=== PATIENT | female | born 1995 | race Caucasian/White ===

== ENCOUNTER 2021-05-09 14:54 | Emergency (ER) | payer OTHER, SELFPAY ==
--- NOTE | ~2021-05-09 | CT_ITS ---
EXAMINATION: CT brain wo con INDICATION: Headache COMPARISON: None TECHNIQUE: Standard unenhanced head CT. The dose-length product (DLP) was 605.33 mGy-cm. The mA was a djusted according to patient size. Iterative reconstruction technique was employed. FINDINGS: There is no intracranial hemorrhage, acute infarction, or abnormal mass lesion. The ventric les are normal. There is no abnormal mass effect or midline shift. The santana-white matter differentiat ion is normal. The basal cisterns are patent. The orbits are normal. The paranasal sinuses, mastoids and calvarium are normal. IMPRESSION: 1. No acute intracranial abnormality. Reviewed, dictated and finalized at location F. L VBA DEVELOPER
--- NOTE | ~2021-05-09 | XR_ITS ---
EXAMINATION: XR chest 2V DATE: 05/09/2021 16:06 INDICATION: Transient alteration of awareness TECHNIQUE: PA and lateral views of the chest are obtained. COMPARISON: None available FINDINGS: The lungs are free of acute opacities. There is no pleural effusion or pneumothorax. The ca rdiomediastinal silhouette is normal. The visualized bones and soft tissues are unremarkable. IMPRESSION: 1. No acute cardiopulmonary abnormality. Reviewed, dictated and finalized at location F. TING MACHINE OPERATOR
[2021-05-09 15:00] VITALS: BP 153/88; PULSE 100; RESP 14; TEMP 36.5; O2SAT 100
--- NOTE | 2021-05-09 15:24 | ECG_ITS ---
Measurements Intervals [place] Rate: 95 P: -1 MA: 132 QRS: 63 QRSD: 98 T: 36 QT: 320 QTc: 402 Interpretive Statements SINUS RHYTHM INCOMPLETE RIGHT BUNDLE BRANCH BLOCK MINIMAL Q WAVES- INFERIOR LEADS BASELINE ARTIFACT- II, III, AVF, V1, V3-V6 BORDERLINE ECG Electronically Signed On 05-09-2021 20:15:01 THERMO CEMENTING FOLDER OPERATOR by Rah Sullivan D.O.
[2021-05-09 15:40] VITALS: PULSE 99
--- NOTE | 2021-05-09 15:49 | ED.DIZZY ---
HPI - Dizziness General Chief Complaint: Syncope Stated Complaint: Syncope Time Seen by Provider: 05/09/21 15:13 History of Present Illness HPI Narrative: 25-year-old female presents to the emergency room with multiple near syncopal episodes over the past 3 days. Associated with dizziness and lightheadedness that occurs only when she is sitting down. States the dizziness is worse when she is moving her head. Dizziness is not accompanied with nausea or vomiting. Patient has a history of PSVT, was evaluate the Holter monitor. Was told at the time that it was benign. Patient also states that she recently discontinued her Mirena IUD month ago. Related Data Home Medications Medication Instructions Recorded Confirmed galcanezumab-gnlm 120 mg/mL 120 mg SUBCUT MONTHLY 03/30/21 03/30/21 subcutaneous pen injector spironolactone 100 mg tablet 100 mg PO DAILY 03/30/21 03/30/21 Allergies Allergy/AdvReac Type Severity Reaction Status Date / Time No Known Allergies Allergy Verified 05/09/21 15:03 Review of Systems Review of Systems: CONSTITUTIONAL: Denies fever, chills, or sweats. EYES: Denies visual changes, redness, or discharge. ENT: Denies rhinorrhea, congestion, sore throat, or otalgia. CARDIOVASCULAR: Denies chest pain, palpitations, or edema. RESPIRATORY: Denies cough or dyspnea. GASTROINTESTINAL: Denies abdominal pain, nausea, vomiting, or diarrhea. GENITOURINARY: Denies dysuria or hematuria. SKIN: Denies rash or itching. MUSCULOSKELETAL: Denies back pain, joint pain, or myalgia. NEUROLOGIC: Denies headache, numbness, or weakness. Reports dizziness when sitting still PSYCHIATRIC: Denies anxiety or depression. [facility] Past Medical History Medical History Acne Migraines Surgical History Surgical History History of gynecological procedure (11/11/18) kyleena iud insertion Family History Family History Father Hypertension Sibling Chronic interstitial cystitis sister Social History Social History Smoking status: Never smoker Alcohol intake: current Drinks per week: 1 Substance use: former Substance use type: does not use Additional living arrangements comments: spouse Additional occupation/education comments: teacher Gender identity (if verbalized by the patient): Female Sexual Orientation (if Verbalized by the Patient): Straight or Heterosexual Exam Narrative: GENERAL: Well-appearing, well-nourished, and in no acute distress. HEAD: Normocephalic, atraumatic. EYES: PERRLA and EOMI. ENT: Nares clear, no rhinorrhea or epistaxis. Mucous membranes moist. Oropharynx without tonsillar hypertrophy exudate or other lesions. Bilateral TMs pearly santana nonbulging NECK: Supple. No adenopathy or masses. No carotid bruits or JVD CHEST: Clear to auscultation. No respiratory distress. No wheezes rales or rhonchi HEART: Regular rate and rhythm. No murmur heard. Normal peripheral pulses. ABDOMEN: Soft, nontender, nondistended, normal active bowel sounds. EXTREMITIES: Normal range of motion. No edema. SKIN: Warm, dry, no rash. NEURO: No focal deficits. Alert and oriented x3. PSYCH: Normal mood and affect. Course Vital Signs Vital signs: Vital Signs Temperature 36.5 C 05/09/21 15:00 Pulse Rate 100 05/09/21 15:00 Respiratory Rate 14 05/09/21 15:00 Blood Pressure 153/88 H 05/09/21 15:00 Pulse Oximetry 100 05/09/21 15:00 Temperature 36.5 C 05/09/21 15:00 Pulse Rate 97 05/09/21 16:25 Respiratory Rate 16 05/09/21 16:25 Blood Pressure 147/82 H 05/09/21 16:25 Pulse Oximetry 100 05/09/21 16:25 MDM - Dizziness MDM Narrative Medical decision making narrative: 25-year-old female presented to emergency room with intermittent dizziness
[2021-05-09 16:01] LABS: Basophils Absolute Auto 0.1 K/mm3 (0.0-0.1); Basophils Percent Auto 0.4 % (0.2-1.2); Eosinophils Absolute Auto 0.1 K/mm3 (0-0.3); Eosinophils Percent Auto 0.6 % (0-4.4); Hematocrit 37.8 % (37.0-47.0); Hemoglobin 13.1 g/dL (12.0-15.0); Immature Granulocyte Absolute 0.04 K/mm3 (0.00-0.031); Immature Granulocyte Percent A 0.3 % (0-0.5); Lymphocytes Absolute Auto 3.11 K/mm3 (0.9-3.2); Lymphocytes Percent Auto 26.4 % (18.3-44.2); Mean Corpuscular HGB Conc 34.7 g/dl (32-36); Mean Corpuscular Hemoglobin 32.8 pg (26-34); Mean Corpuscular Volume 94.7 fl (80-100); Mean Platelet Volume 9.7 fl (7.4-10.4); Monocytes Absolute Auto 0.8 K/mm3 (0.1-0.6); Monocytes Percent Auto 7.1 % (2.6-8.5); Neutrophils Absolute Auto 7.7 K/mm3 (1.3-6.7); Neutrophils Percent Auto 65.2 % (45.5-73.1); Platelet Count Result 276 k/mm3 (150-375); Red Blood Count 3.99 M/mm3 (4.2-5.4); Red Cell Distribution Width 11.8 % (11.5-14.5); White Blood Count 11.8 K/mm3 (4.5-10.0)
[2021-05-09 16:18] LABS: Alanine Aminotransferase 15 U/L (4-35); Albumin Level 4.6 g/dL (3.5-5.1); Alkaline Phosphatase 56 U/L (38-126); Anion Gap 7 mmol/L (8-16); Aspartate Amino Transferase 23 U/L (14-36); Bilirubin,Total 1.9 mg/dL (0.2-1.3); Blood Urea Nitrogen 10 mg/dL (7-17); Carbon Dioxide 29 mmol/L (22-30); Chloride 103 mmol/L (98-107); Estimated CRCL calculation 75 ml/min; Estimated Glomerular Filt Rate > 60; Glucose 116 mg/dL (65-110); Potassium 3.8 mmol/L (3.4-5.0); Sodium 139 mmol/L (137-145)
[2021-05-09 16:24] LABS: Add Urine Microscopic? NO; Appearance Urine Clear (Clear); Bilirubin Urine Negative (Negative); Blood Urine Negative (Negative); Color Urine Colorless (Yellow); Glucose Urine UA Negative (Negative); Ketones Urine Negative (Negative); Leukocyte Esterase Ur Negative LEU/UL (Negative); Nitrate Urine Negative (Negative); Protein Urine Negative (Negative); Urobilinogen Urine Negative mg/dL (<2.0)
[2021-05-09 16:25] VITALS: BP 147/82; PULSE 97; RESP 16; O2SAT 100
[2021-05-09] MEDS: SODIUM CHLORIDE 0.9% IV 1,000 ML 500 ML IV CONT (16:28)
[2021-05-09 16:37] LABS: Specific Grav Ur 1.003 (1.001-1.035)
[2021-05-09 16:38] LABS: D Dimer 0.27 ug/mL (<0.48); Troponin I < 0.012 ng/mL (0.000-0.034)
== END 2021-05-09 17:12 | disposition home or self-care (01) ==
PROVIDERS: Emergency Provider Nurse Practitioner Family; PCP Nurse Practitioner Adult Health
DX: R42 Dizziness and giddiness (principal); I45.10 Unspecified right bundle-branch block
CPT/HCPCS: 36415; 70450; 71046; 80053; 81003; 81025; 84443; 84484; 85025; 85380; 93005; 96360; 99284; J7030

== ENCOUNTER 2021-07-23 09:04 | Outpatient (CLI) | payer OTHER, SELFPAY ==
--- NOTE | ~2021-07-23 | US_ITS ---
US breast RT complete INDICATION: Palpable right breast lump TECHNIQUE: Dedicated complete right breast ultrasound including all 4 quadrants in the subareolar loc ation COMPARISON: No prior studies for comparison. FINDINGS: At 11:00, 3 cm from the nipple, there is a 6 mm cyst. No suspicious solid or vascular lesio ns are identified in the right breast.. IMPRESSION: 1: No sonographic evidence for malignancy in the right breast. Benign cyst at 11:00. BI-RADS CATEGORY 2 - BENIGN FINDINGS Reviewed, dictated and finalized at location A. IMPRESSION: 1: No sonographic evidence for malignancy in the right breast. Benign cyst at 1 1:00. BI-RADS CATEGORY 2 - BENIGN FINDINGS
== END 2021-07-23 09:05 | disposition home or self-care (01) ==
PROVIDERS: PCP Nurse Practitioner Adult Health; Visit Provider Obstetrics & Gynecology
DX: N63.15 Unspecified lump in the right breast, overlapping quadrants (principal)
CPT/HCPCS: 76641

== ENCOUNTER 2021-10-16 09:16 | Emergency (ER) | payer OTHER, SELFPAY ==
[2021-10-16 09:43] VITALS: BP 140/81; PULSE 84; RESP 14; TEMP 36.2; O2SAT 99
[2021-10-16] MEDS: METOCLOPRAMIDE HCL INJ 10 MG/2 ML VIAL IM ×2 (12:02→13:14)
[2021-10-16] MEDS: diphenhydrAMINE HCl CAP 25 MG CAPSULE PO (12:02)
--- NOTE | 2021-10-16 12:04 | ED.HA ---
HPI - Headache General Chief Complaint: Headache Stated Complaint: migraine, 4 weeks Time Seen by Provider: 10/16/21 11:11 History of Present Illness HPI Narrative: 26yoF at 4wk preg p/w migraine, unsure what meds she can take. Feels like her usual migraines, started a few days ago. Right-sided throbbing. Tried tylenol which didn't work. No new focal neuro deficits. Related Data Home Medications Medication Instructions Recorded Confirmed galcanezumab-gnlm 120 mg/mL 120 mg subcut MONTHLY 03/30/21 07/12/21 subcutaneous pen injector (Emgality Pen) Allergies Allergy/AdvReac Type Severity Reaction Status Date / Time No Known Allergies Allergy Verified 07/12/21 15:57 Review of Systems Review of Systems: CONST: No fever. HEENT: No sore throat C/V: No chest pain RESP: No cough GI: Reports nausea, vomiting : No dysuria. M/S: No joint pain. SKIN: No rash. NEURO: [Headache, no focal numbness or weakness] PSYCH: [No depression] [facility] Past Medical History Medical History Acne Migraines Surgical History Surgical History History of gynecological procedure (11/11/18) kyleena iud insertion removal 03/2021 Family History Family History Father Hypertension Sibling Chronic interstitial cystitis sister Social History Social History Smoking status: Never smoker Alcohol intake: current Drinks per week: 1 Substance use: former Substance use type: does not use Additional living arrangements comments: spouse Additional occupation/education comments: teacher Gender identity (if verbalized by the patient): Female Sexual Orientation (if Verbalized by the Patient): Straight or Heterosexual Exam Narrative: EXAMINATION OF ORGAN SYSTEMS/BODY AREAS: Constitutional: Vital signs per nursing GENERAL:[No acute distress, non-toxic appearing.] HEAD: Normal with no signs of head trauma. EYES: EOMI, conjunctiva normal ENT: Normal voice LUNGS: Nonlabored breathing. HEART: [Regular rate and rhythm] ABD: [Soft], [nontender to palpation] EXT: Normal range of motion SKIN: [No rashes or lesions.] NEURO: [Alert and oriented x 3. No gross focal sensory or strength deficits.] Normal gait. PSYCH: Normal affect Course Vital Signs Vital signs: Vital Signs Temperature 97.2 F L 10/16/21 09:43 Pulse Rate 84 10/16/21 09:43 Respiratory Rate 14 10/16/21 09:43 Blood Pressure 140/81 10/16/21 09:43 Pulse Oximetry 99 10/16/21 09:43 Oxygen Delivery Room Air 10/16/21 09:43 Temperature 97.2 F L 10/16/21 09:43 Pulse Rate 83 10/16/21 13:49 Respiratory Rate 16 10/16/21 13:49 Blood Pressure 138/84 10/16/21 13:49 Pulse Oximetry 98 10/16/21 13:49 Oxygen Delivery Room Air 10/16/21 09:43 MDM - Headache MDM Narrative Medical decision making narrative: 26yoF presents to the emergency department for headache. Patient is hemodynamically stable. No focal neurological or cranial nerve deficits on exam. No meningeal signs. The headache was gradual in onset, it is not exertional and does not appear consistent with subarachnoid hemorrhage or intracranial bleeding. No trauma. Patient is given headache cocktail including Reglan, Benadryl. On reevaluation, the patient feels significantly better with the headache resolved. No neurological deficits. Patient is comfortable going home for outpatient follow-up with primary care physician and provided with strict return precautions, especially for worsening headaches, neck pain/stiffness, fever or weakness, numbness/tingling or persistent vomiting. Pulse oximetry interpretation: Not hypoxic. Discharge Plan Discharge Clinical Impression: Migraine Patient Disposition: Home, Self-Care Condition: Improved Instructions: A
[2021-10-16] MEDS: DEXAMETHASONE 2 MG TABLET 6 MG PO (13:13)
[2021-10-16 13:49] VITALS: BP 138/84; PULSE 83; RESP 16; O2SAT 98
== END 2021-10-16 13:51 | disposition home or self-care (01) ==
PROVIDERS: Emergency Provider Emergency Medicine; PCP Nurse Practitioner Adult Health
DX: O99.351 Diseases of the nervous system complicating pregnancy, first trimester (principal); G43.909 Migraine, unspecified, not intractable, without status migrainosus; Z3A.01 Less than 8 weeks gestation of pregnancy
CPT/HCPCS: 96372; 99284; A9270; J2765; J8540

== ENCOUNTER 2021-11-02 17:04 | Emergency (ER) | payer OTHER, SELFPAY ==
--- NOTE | ~2021-11-02 | US_ITS ---
EXAMINATION: US OB <=14 wk fetus w TV INDICATION: . Spotting. Concern for ectopic . TECHNIQUE: Sonography of the pelvis was performed by transabdominal and transvaginal techniques. COMPARISON: None. RESULT: Uterus: - Orientation: Anteverted - Size: 7.2 x 4.1 x 3.4 cm - Myometrium: homogeneous echogenicity Gestation: - Intrauterine gestational sac: Single present. - Mean Sac Diameter: 0.61 cm, corresponding gestational age 5 week 2 days. The gestational sac size is small relative to the size of the embryo. - Embryo: Single present. - Tynan rump length: 0.22 cm, corresponding gestational age 5 weeks, 5 days. INCHELLE by ultrasound 07/01/2022. -Gestational heart rate: Absent. -Subgestational hematoma: Absent. Right ovary: - Size : 2.3 x 1.4 x 2.4 cm - Normal sonographic appearance with physiologic follicles. Left ovary: - Size: 2.6 x 2.8 x 2.2 cm - Normal sonographic appearance with physiologic follicles. Pelvis free fluid: None. IMPRESSION: Single, intrauterine gestational sac and pole without cardiac activity, suspicious for but not diagnostic of . Recommend continued clinical and sonographic follow-up. Estimated Gestational Age: 5 weeks, 5 days by crown rump length. Reviewed, dictated and finalized at location K. IMPRESSION: Single, intrauterine gestational sac and pole without cardiac activity, s uspicious for but not diagnostic of . Recommend continued clinical and sonographic follow-up. Estimated Gestational Age: 5 weeks, 5 days by crown rump length.
[2021-11-02 17:16] VITALS: BP 121/68; PULSE 97; RESP 18; TEMP 36.7; O2SAT 100
[2021-11-02 17:53] VITALS: BP 138/104; O2SAT 100
[2021-11-02 17:54] VITALS: O2SAT 100
--- NOTE | 2021-11-02 18:15 | ED.FEMALEGU ---
HPI - Female Genitourinary General Chief complaint: Vaginal Bleeding Stated complaint: vaginal bleed 6 weeks Time Seen by Provider: 11/02/21 17:47 History of Present Illness HPI Narrative: 26-year-old female presents to the ER today for complaints of vaginal bleeding and spotting that started today. She says that she is about 6 weeks . Her last period started on September 20. She is a G1, P0. She denies any problems with dysuria or hematuria. She has not had any abnormal vaginal discharge prior to this spotting today. She denies having any lower abdominal pain other than some intermittent cramping. No flank pain. No dizziness or lightheadedness. She has not been seen by her OB provider for this . Related Data Allergies Allergy/AdvReac Type Severity Reaction Status Date / Time No Known Allergies Allergy Verified 11/08/21 15:20 Review of Systems Review of Systems: CONSTITUTIONAL: Denies fever, chills, or sweats. EYES: Denies visual changes, redness, or discharge. ENT: Denies rhinorrhea, congestion, sore throat, or otalgia. CARDIOVASCULAR: Denies chest pain, palpitations, or edema. RESPIRATORY: Denies cough or dyspnea. GASTROINTESTINAL: Denies abdominal pain, nausea, vomiting, or diarrhea. GENITOURINARY: As per HPI SKIN: Denies rash or itching. MUSCULOSKELETAL: Denies back pain, joint pain, or myalgia. NEUROLOGIC: Denies headache, numbness, dizziness, or weakness. PSYCHIATRIC: Denies anxiety or depression. [facility] Past Medical History Medical History Acne Migraines Surgical History Surgical History History of gynecological procedure (11/11/18) kyleena iud insertion removal 03/2021 Family History Family History Father Hypertension Sibling Chronic interstitial cystitis sister Social History Social History Smoking status: Never smoker Alcohol intake: current Drinks per week: 1 Substance use: former Substance use type: does not use Additional living arrangements comments: spouse Additional occupation/education comments: teacher Gender identity (if verbalized by the patient): Female Sexual Orientation (if Verbalized by the Patient): Straight or Heterosexual Exam Narrative: GENERAL: Well-appearing, well-nourished, and in no acute distress. HEAD: Normocephalic, atraumatic. EYES: PERRLA and EOMI. NECK: Supple. No adenopathy or masses. No carotid bruits or JVD CHEST: Clear to auscultation. No respiratory distress. No wheezes rales or rhonchi HEART: Regular rate and rhythm. No murmur heard. Normal peripheral pulses. ABDOMEN: Soft, nontender, nondistended, normal active bowel sounds. EXTREMITIES: Normal range of motion. No edema. SKIN: Warm, dry, no rash. NEURO: No focal deficits. Alert and oriented x3. PSYCH: Normal mood and affect. Course Course Emergency Course: 1848 Care of patient turned over to Cynthia Perales NP Vital Signs Vital signs: Vital Signs Temperature 36.7 C 11/02/21 17:16 Pulse Rate 97 11/02/21 17:16 Respiratory Rate 18 11/02/21 17:16 Blood Pressure 121/68 11/02/21 17:16 Pulse Oximetry 100 11/02/21 17:16 Oxygen Delivery Room Air 11/02/21 17:16 Temperature 36.7 C 11/02/21 17:16 Pulse Rate 92 11/02/21 21:16 Respiratory Rate 16 11/02/21 21:16 Blood Pressure 125/72 11/02/21 21:16 Pulse Oximetry 100 11/02/21 21:16 Oxygen Delivery Room Air 11/02/21 17:16 MDM - Female Genitourinary Lab Data Result diagrams: 11/02/21 18:27 11/02/21 18:27 Labs: Lab Results 11/02/21 11/02/21 11/02/21 Range/Units 18:27 18:27 18:27 WBC 9.8 (4.5-10.0) K/mm3 RBC 3.81 L (4.2-5.4) M/mm3 Hgb 12.2 (12.0-15.0) g/dL Hct 35.9 L (37.0-47.0) % MCV
[2021-11-02 18:34] LABS: Basophils Absolute Auto 0.1 K/mm3 (0.0-0.1); Basophils Percent Auto 0.6 % (0.2-1.2); Eosinophils Absolute Auto 0.1 K/mm3 (0-0.3); Eosinophils Percent Auto 0.7 % (0-4.4); Hematocrit 35.9 % (37.0-47.0); Hemoglobin 12.2 g/dL (12.0-15.0); Immature Granulocyte Absolute 0.03 K/mm3 (0.00-0.031); Immature Granulocyte Percent A 0.3 % (0-0.5); Lymphocytes Absolute Auto 3.42 K/mm3 (0.9-3.2); Lymphocytes Percent Auto 34.9 % (18.3-44.2); Mean Corpuscular Volume 94.2 fl (80-100); Mean Platelet Volume 9.8 fl (7.4-10.4); Monocytes Absolute Auto 0.7 K/mm3 (0.1-0.6); Monocytes Percent Auto 7.6 % (2.6-8.5); Neutrophils Absolute Auto 5.5 K/mm3 (1.3-6.7); Neutrophils Percent Auto 55.9 % (45.5-73.1); Platelet Count Result 238 k/mm3 (150-375); Red Blood Count 3.81 M/mm3 (4.2-5.4); Red Cell Distribution Width 11.9 % (11.5-14.5); White Blood Count 9.8 K/mm3 (4.5-10.0)
[2021-11-02 18:44] LABS: Appearance Urine Clear (Clear); Bilirubin Urine Negative (Negative); Blood Urine 2+ (Negative); Glucose Urine UA Negative (Negative); Ketones Urine Negative (Negative); Leukocyte Esterase Ur Trace LEU/UL (Negative); Nitrate Urine Negative (Negative); Protein Urine Negative (Negative); Urobilinogen Urine 0.2 mg/dL (<2.0); pH Urine 6.5 (5.0-9.0)
[2021-11-02] MEDS: SODIUM CHLORIDE 0.9% IV 1,000 ML 999 ML IV CONT (18:47)
[2021-11-02 18:50] LABS: Bacteria Urine Trace /hpf; RBC Urine 0-2 /hpf (0-2); Squamous Epithelial Cell Urine Occasional /hpf (Few); WBC Urine 0-3 /hpf
[2021-11-02 18:53] LABS: Add Urine Microscopic? YES; Color Urine Light Yellow (Yellow)
[2021-11-02 19:10] LABS: Alanine Aminotransferase 10 U/L (6-35); Albumin Level 4.5 g/dL (3.5-5.1); Alkaline Phosphatase 54 U/L (38-126); Anion Gap 10 mmol/L (8-16); Aspartate Amino Transferase 21 U/L (14-36); Bilirubin,Total 1.8 mg/dL (0.2-1.3); Blood Urea Nitrogen 6 mg/dL (7-17); Calcium 9.1 mg/dL (8.4-10.2); Carbon Dioxide 24 mmol/L (22-30); Chloride 102 mmol/L (98-107); Estimated CRCL calculation 82 ml/min; Estimated Glomerular Filt Rate > 60; Glucose 99 mg/dL (65-110); Potassium 3.4 mmol/L (3.4-5.0); Sodium 136 mmol/L (137-145)
--- NOTE | 2021-11-02 20:13 | ED.FEMALEGU ---
HPI - Female Genitourinary General Chief complaint: Vaginal Bleeding Stated complaint: vaginal bleed 6 weeks Time Seen by Provider: 11/02/21 17:47 History of Present Illness HPI Narrative: Pt is endorsed to me by AYAN Gutierrez. Pt has US ordered to confirm IUP, , 6 weeks , LMP September 28, started spotting last HS, increased bleeding today, more menstrual period like . Very minimal cramping. No focal pain. She denies trauma, O positive blood type, US pending Related Data Home Medications Medication Instructions Recorded Confirmed galcanezumab-gnlm 120 mg/mL 120 mg subcut MONTHLY 03/30/21 07/12/21 subcutaneous pen injector (Emgality Pen) Allergies Allergy/AdvReac Type Severity Reaction Status Date / Time No Known Allergies Allergy Verified 07/12/21 15:57 Review of Systems Review of Systems: refer to [facility] Past Medical History Medical History Acne Migraines Surgical History Surgical History History of gynecological procedure (11/11/18) kyleena iud insertion removal 03/2021 Family History Family History Father Hypertension Sibling Chronic interstitial cystitis sister Social History Social History Smoking status: Never smoker Alcohol intake: current Drinks per week: 1 Substance use: former Substance use type: does not use Additional living arrangements comments: spouse Additional occupation/education comments: teacher Gender identity (if verbalized by the patient): Female Sexual Orientation (if Verbalized by the Patient): Straight or Heterosexual Exam Const: General: healthy appearing, no acute distress and alert HENMT: Head: normal to inspection Eyes: Conjunctivae: conjunctivae normal EOM: EOMs intact bilaterally Neck: Neck: normal visual inspection, no lymphadenopathy and no meningeal signs Resp: Effort & Inspection: normal respiratory effort Auscultation: clear to auscultation bilaterally Cardio: Rate: regular rate Rhythm: regular rhythm GI: GI Palp: Yes Soft to palpation, No Tenderness to palpation present (GI), No Guarding due to palpation present (GI), No Rigid due to palpation, No Hernia present, No Palpable mass present and No Rebound tenderness present Auscultation: normal bowel sounds Back/Spine/Pelvis: Back: no CVA tenderness Skin: General skin exam: normal color Rashes: no rashes Wounds: no wounds Neuro: General: patient oriented x3, moves all extremities, no meningeal signs, no focal motor deficits and CN's II-XI intact bilaterally Speech: normal speech Extrem: General: normal to inspection Course Vital Signs Vital signs: Vital Signs Temperature 36.7 C 11/02/21 17:16 Pulse Rate 97 11/02/21 17:16 Respiratory Rate 18 11/02/21 17:16 Blood Pressure 121/68 11/02/21 17:16 Pulse Oximetry 100 11/02/21 17:16 Oxygen Delivery Room Air 11/02/21 17:16 Temperature 36.7 C 11/02/21 17:16 Pulse Rate 97 11/02/21 17:16 Respiratory Rate 18 11/02/21 17:16 Blood Pressure 138/104 H 11/02/21 17:53 Pulse Oximetry 100 11/02/21 17:54 Oxygen Delivery Room Air 11/02/21 17:16 MDM - Female Genitourinary MDM Narrative Medical decision making narrative: Pt is endorsed to Dr Batista, patient's OBGYN. He requests pelvic rest, home care instructions and S/S worsened condition are provided to patient with call to office by patient tomorrow to arrange for repeat US in one week. Pt is updated and she is agreeable with plan. Differential Diagnosis Differential diagnosis: Likely other (threated ab, early gestation ) Lab Data Result diagrams: 11/02/21 18:27 11/02/21 18:27 Labs: Lab Results 11/02/21 11/02/21 11/02/21 Range/U
[2021-11-02 21:16] VITALS: BP 125/72; PULSE 92; RESP 16; O2SAT 100
== END 2021-11-02 21:17 | disposition home or self-care (01) ==
PROVIDERS: Nurse Practitioner Family; Emergency Provider Nurse Practitioner Family; PCP Nurse Practitioner Adult Health
DX: O20.0 Threatened abortion (principal); Z3A.01 Less than 8 weeks gestation of pregnancy
CPT/HCPCS: 36415; 76801; 76817; 80053; 81001; 81025; 84702; 85025; 86900; 86901; 96360; 99284; J7030

== ENCOUNTER 2022-01-05 10:57 | Outpatient (CLI) | payer OTHER, SELFPAY ==
[2022-01-10 13:15] LABS: Progesterone 9.7 ng/mL (***)
== END 2022-01-05 10:58 | disposition home or self-care (01) ==
PROVIDERS: PCP Nurse Practitioner Adult Health
DX: N92.6 Irregular menstruation, unspecified (principal)
CPT/HCPCS: 36415; 84144; 84702

== ENCOUNTER 2022-01-07 07:01 | Outpatient (CLI) | payer OTHER, SELFPAY | END 2022-01-07 07:02 | disposition home or self-care (01) | LOC: ANHLAB 07:03 | PROVIDERS: PCP Nurse Practitioner Adult Health; Visit Provider Obstetrics & Gynecology | DX: N91.2 Amenorrhea, unspecified (principal) | CPT/HCPCS: 36415; 84702 ==

== ENCOUNTER 2022-01-10 07:03 | Outpatient (CLI) | payer OTHER, SELFPAY | END 2022-01-10 07:04 | disposition home or self-care (01) | LOC: ANHLAB 07:04 | PROVIDERS: PCP Nurse Practitioner Adult Health; Visit Provider Obstetrics & Gynecology | DX: O20.0 Threatened abortion (principal) | CPT/HCPCS: 36415; 84702 ==

== ENCOUNTER 2022-01-13 00:52 | Day surgery (SDC) | payer OTHER, SELFPAY ==
[2022-01-11 09:44] VITALS: BMI 20.1
--- NOTE | 2022-01-11 09:49 | PC.NURSE ---
Report to the Outpatient Waiting Room, entrance under the green pavilion located off [facility], at time 0915 on date 01/13/22. Planned Procedure Time: 1115. Time changes happen often and if your time is changed the preop area will call you the afternoon before. - You and your visitor will be asked to self-screen and do not enter if you have any COVID symptoms. - We encourage only one visitor and NO visitors under age 16 are allowed at this time. Your visitor will receive communication by the phone number that is given day of service. - The patient visitor is requested to social distance or may leave the building when not with patient due to restrictions. - A mask is OPTIONAL within the hospital. Patients may have clear liquids (water, carbonated beverages, clear teas, apple juice) until 3 hours prior to surgery with a maximum of 20 ounces. - No food from midnight until time of surgery Take the following medications with a SIP of water the morning of surgery: NONE Medications to discontinue per physician: VITAMINS Date to take last dose: NO MORE UNTIL AFTER SURGERY Please no make-up, nail syriac, hairspray, perfume, deodorant, or body powder the day of surgery. No jewelry (including any body piercings) or valuables the day of surgery, leave them at home. Please take a shower or bath the night before, or the morning of, surgery with an antibacterial soap. Wear comfortable, loose fitting clothing. - Jewelry must be removed prior to entering the operating room. Rings and piercings that are not removed may be cut off. - The hospital will not accept responsibility for valuables. - Please leave all valuables, including medications, at home the day of surgery. If you are going home after surgery, a licensed class a regional truck driver must drive you home. - NO public transportation without another adult. - We recommend that an adult stay with you for 24 hours following discharge. - We also recommend that you do not drive, make important decision, drink alcoholic beverages, or take any drugs that were not prescribed by your health care provider for at least 24 hours after your discharge time. Follow any additional instructions given to you from your surgeon. If you or anyone in your household have experienced Covid symptoms in the past week, please notify your surgeon or the nurse liaison at the phone number below for possible testing. Telephone instructions given to PT - TAQUERIA BARON and asked if any additional questions and then verbalized understanding. Patient advised to call surgeon office or pre surgery nurse liaison [phone] if any additional questions.
--- NOTE | 2022-01-12 13:11 | P.HP_ITS ---
H&P: HPI History of Present Illness Date/Time: 01/12/22 13:11 26-year-old female 2 para 0020 presents with complaints vaginal spotting and falling hCG levels. Also ultrasound which shows pole with no cardiac activity. Same scenario occurred approximately 3 months ago, After that episode she did have an ultrasound which showed complete resolution of and no retained tissue. Chief Complaint: Incomplete miscarriage Review of Systems Review of Systems: All systems reviewed & are unremarkable except as noted in HPI and below PMFSH Past Medical History Medical History Acne Amenorrhea Migraines Threatened Surgical History Surgical History History of gynecological procedure (11/11/18) kyleena iud insertion removal 03/2021 Family History Family History Father Hypertension Sibling Chronic interstitial cystitis sister Social History Social History Smoking status: Never smoker Alcohol intake: former Drinks per week: 1 Alcohol use details: 1 EVERY 2 WEEKS WHEN NOT Substance use: never Substance use type: does not use Living arrangements: with family Additional living arrangements comments: spouse Additional occupation/education comments: teacher Gender identity (if verbalized by the patient): Female Sexual Orientation (if Verbalized by the Patient): Straight or Heterosexual Spiritual care concerns: No Meds Home Medications and Allergies Home Medications Medication Instructions Recorded Confirmed Type vit no.95-ferrous 1 tablet PO DAILY #30 tabs 11/02/21 01/11/22 Rx fumarate 28 mg-folic acid 800 mcg tablet () Allergies Allergy/AdvReac Type Severity Reaction Status Date / Time oxycodone AdvReac Vomiting Verified 01/11/22 09:49 Exam Const: General: cooperative and healthy appearing Resp: Effort & Inspection: normal respiratory effort Auscultation: clear to auscultation bilaterally Cardio: Rate: regular rate Rhythm: regular rhythm GI: Inspection: normal to inspection Auscultation: normal bowel sounds : External Female Exam: normal external appearance Speculum Exam - Vagina : normal appearance of the vagina Speculum Exam - Cervix: normal appearance of the cervix Bimanual exam- vagina & uterus: enlarged ( 8-10 week size) Bimanual Exam- Adnexa, other: normal adnexae Assessment and Plan Assessment and plan (1) Incomplete : Code(s): O03.4 - Incomplete spontaneous without complication Status: Acute Plan 1. Proceed with suction curettage 2. Will send tissue for genetic studies.
[2022-01-13 07:05] VITALS: BP 124/80; PULSE 68; RESP 14; TEMP 36.8; O2SAT 100; BMI 19.8
--- NOTE | 2022-01-13 07:23 | WPDHPUPDATE1 ---
History and Physical Update Update Date/Time: 01/13/22 07:23 History and Physical has been reviewed, including an updated exam of the patient. There are NO changes in the patient's condition. Risks, benefits, and alternatives have been discussed and questions answered. Patient agrees to proceed with procedure.
[2022-01-13] MEDS: LACTATED RINGERS 1,000 ML 30 ML IV CONT (07:25)
[2022-01-13] MEDS: ACETAMINOPHEN 500 MG TABLET 1000 MG PO (07:32)
--- NOTE | 2022-01-13 07:35 | WPDANESEPPF ---
Anes - Initial Pre Proc Eval Procedure: Operation Date: 01/13/22 09:00 Proposed Procedures p Suction Dilation and Curettage - Tino Batista MD Date/Time: 01/13/22 07:35 Surgeon: Tino Batista MD Pre Op Diagnosis: Missed Ab Patient Data Age: 26 Gender: F Height: 1.68 m Weight: 56.7 kg Allergies Allergy/AdvReac Type Severity Reaction Status Date / Time oxycodone AdvReac Vomiting Verified 01/11/22 09:49 Home Medications Medication Instructions Recorded Confirmed Type vit no.95-ferrous 1 tablet PO DAILY #30 tabs 11/02/21 01/11/22 Rx fumarate 28 mg-folic acid 800 mcg tablet () Patient hx anesthesia problems: none Family hx anesthesia problems: none Results Review: All pre-operative results and documents have been reviewed as part of the pre-operative evaluation. [facility] Past Medical History Medical History Acne Amenorrhea Migraines Threatened Surgical History Surgical History History of gynecological procedure (11/11/18) kyleena iud insertion removal 03/2021 Family History Family History Father Hypertension Sibling Chronic interstitial cystitis sister Social History Social History Smoking status: Never smoker Alcohol intake: former Drinks per week: 1 Alcohol use details: 1 EVERY 2 WEEKS WHEN NOT Substance use: never Substance use type: does not use Living arrangements: with family Additional living arrangements comments: spouse Additional occupation/education comments: teacher Gender identity (if verbalized by the patient): Female Sexual Orientation (if Verbalized by the Patient): Straight or Heterosexual Spiritual care concerns: No Anes - Eval Final PreProcedure Day of Procedure 01/13/22 07:35 Patient weight: normal Heart: regular rate and rhythm Lungs: clear to auscultation Airway: Mallampati scale class 1 Neurological: alert and oriented Last oral intake: >/= 8 hours ASA classification: II Emergent: no Anesthetic plan: proceed Anesthesia type and monitoring: general GIVS and standard monitoring Results Review: All pre-operative results and documents have been reviewed as part of the pre-operative evaluation. Informed Consent: The patient's anesthetic plan and its attendant risks and benefits were discussed with the patient/family/POA. Questions were solicited and answers provided to the satisfaction of the patient/family/POA.
[2022-01-13 08:02] VITALS: BP 131/80; PULSE 98; RESP 16; O2SAT 98
--- NOTE | 2022-01-13 08:07 | W.PM.PROC2 ---
Procedure Note - Detailed Date of Procedure 01/13/22 Pre-op Diagnosis 1. First-trimester missed 2. Habitual (#2) Post-op Diagnosis Same Procedure Performed Suction curettage Surgeon Tino Batista MD Anesthesia MAC Findings Moderate amount of retained products of conception Description of Procedure Patient prepped and draped in the usual sterile manner for this procedure. Cervix dilated to allow the 8mm curette to be used. Suction of moderate amount of tissue followed by sharp curetting with no remaining tissue or significant bleeding. Suction curette placed 1 last time with minimal bleeding. At this point the procedure was considered terminated the patient was sent to recovery room in stable condition. Estimated Blood Loss -20.0 Drains No Packing No Pathology Yes (Sent for pathologic diagnosis as well as chromosome studies.) Complications No immediate complications Condition Stable Disposition PACU [facility] Billing Surgery - Charge Forward: Surgery Billing
--- NOTE | 2022-01-13 08:08 | SUR.OPER ---
Specimen sent with JOLEEN Martines and received in pathology by Brenda
[2022-01-13 08:30] VITALS: BP 120/67; PULSE 80; RESP 14; O2SAT 99
[2022-01-13 09:00] VITALS: BP 133/83; PULSE 79; RESP 14; O2SAT 100
[2022-01-13 09:20] VITALS: BP 120/83; PULSE 67; RESP 14
== END 2022-01-13 09:33 | disposition home or self-care (01) ==
PROVIDERS: PCP Nurse Practitioner Adult Health; Visit Provider Obstetrics & Gynecology
PROC: (CPT 59820; principal; 2022-01-13 09:00)
DX: O03.4 Incomplete spontaneous abortion without complication (principal)
CPT/HCPCS: 59820; 88233; 88262; 88264; 88305; A9270; J1100; J1885; J2250; J2405; J2704; J3010; J7120

== ENCOUNTER 2022-01-21 12:35 | Outpatient (CLI) | payer OTHER, SELFPAY ==
[2022-01-21 14:01] LABS: Beta HCG Quantitative 184.31 mIU/ML
[2022-01-21 14:22] LABS: Hepatitis B Surface Antigen Negative (Negative)
[2022-01-21 14:24] LABS: HIV 1/2 Ab P24 Ag Result Negative (Negative)
[2022-01-21 14:27] LABS: HAV RESULT Negative (Negative); Hepatitis B Core IgM Result Negative (Negative)
[2022-01-21 14:39] LABS: Hepatitis B Surface Anti Res Negative; Hepatitis C Virus Antibody Negative (Negative)
[2022-01-21 17:06] LABS: Rapid Plasma Reagin Non-Reactive (NonReactive)
[2022-01-26 20:54] LABS: Progesterone 1.8 ng/mL (***)
== END 2022-01-21 12:36 | disposition home or self-care (01) ==
LOC: ANHLAB 12:39
PROVIDERS: PCP Nurse Practitioner Adult Health
DX: N92.6 Irregular menstruation, unspecified (principal); O02.1 Missed abortion; N96 Recurrent pregnancy loss; Z13.79 Encounter for other screening for genetic and chromosomal anomalies; Z01.83 Encounter for blood typing; Z11.9 Encounter for screening for infectious and parasitic diseases, unspecified; Z11.59 Encounter for screening for other viral diseases
CPT/HCPCS: 36415; 80074; 84144; 84702; 86592; 86703; 86706; 86900; 86901; G0432

== ENCOUNTER 2022-01-28 09:49 | Outpatient (CLI) | payer OTHER, SELFPAY ==
[2022-01-28 14:14] LABS: Beta HCG Quantitative 29.62 mIU/ML
== END 2022-01-28 09:50 | disposition home or self-care (01) ==
PROVIDERS: PCP Nurse Practitioner Adult Health
DX: N91.2 Amenorrhea, unspecified (principal)
CPT/HCPCS: 36415; 84702

== ENCOUNTER 2022-02-06 10:05 | Emergency (ER) | payer OTHER, SELFPAY ==
[2022-02-06 10:41] VITALS: BP 133/91; PULSE 89; RESP 18; TEMP 36.9; O2SAT 100
--- NOTE | 2022-02-06 11:18 | ED.URI ---
HPI - URI/Sore Throat General Chief Complaint: Upper Respiratory Infection Stated Complaint: sorethroat,congestion Time Seen by Provider: 02/06/22 11:10 Source: patient Mode of arrival: ambulatory Limitations: no limitations History of Present Illness HPI Narrative: Patient presents today complaining of a 2 day history of body aches with sore throat and cough that started yesterday. She is unsure if she has had a fever. She currently rates her sore throat 06/20 and has been taking ibuprofen with mild relief. Related Data Home Medications Medication Instructions Recorded Confirmed vit no.95-ferrous 1 tablet PO DAILY 02/06/22 02/06/22 fumarate 28 mg-folic acid 800 mcg tablet () Allergies Allergy/AdvReac Type Severity Reaction Status Date / Time oxycodone AdvReac Vomiting Verified 02/06/22 10:39 Review of Systems Review of Systems: CONSTITUTIONAL: Denies fever, chills, or sweats.+ Body aches EYES: Denies visual changes, redness, or discharge. ENT: Denies rhinorrhea, congestion, or otalgia.+ sore throat CARDIOVASCULAR: Denies chest pain, palpitations, or edema. RESPIRATORY: Denies dyspnea.+ cough GASTROINTESTINAL: Denies abdominal pain, nausea, vomiting, or diarrhea. GENITOURINARY: Denies dysuria or hematuria. SKIN: Denies rash, itching, or wounds. MUSCULOSKELETAL: Denies back pain, joint pain, or myalgia. NEUROLOGIC: Denies headache, numbness, tingling, or weakness. PSYCH: Denies depression or anxiety. [facility] Past Medical History Medical History Acne Amenorrhea Migraines Threatened Surgical History Surgical History History of gynecological procedure (11/11/18) kyleena iud insertion removal 03/2021 History of gynecological procedure (01/13/22) suction D&C missed AB Family History Family History Father Hypertension Sibling Chronic interstitial cystitis sister Social History Social History Smoking status: Never smoker Alcohol intake: former Drinks per week: 1 Alcohol use details: 1 EVERY 2 WEEKS WHEN NOT Substance use: never Substance use type: does not use Additional living arrangements comments: spouse Additional occupation/education comments: teacher Gender identity (if verbalized by the patient): Female Sexual Orientation (if Verbalized by the Patient): Straight or Heterosexual Spiritual care concerns: No Comments At time of signature, I have reviewed and agree with nursing past medical, surgical, social and family history unless otherwise noted. Please see nursing chart for further information. There is no relevant family history pertinent to the presenting complaint Exam Narrative: GENERAL: ill-appearing, well-nourished, and in no acute distress. HEAD: Normocephalic, atraumatic. EYES: EOMI. No redness or drainage. Conjunctivae normal. ENT: Mucous membranes pink and moist. Nares clear. No rhinorrhea. TMs normal bilaterally. Throat mildly erythematous without edema or exudate. Uvula midline. NECK: Normal AROM. Supple. bilateral anterior cervical chain lymphadenopathy. CHEST: No respiratory distress. Clear to auscultation. Harsh cough noted. HEART: Regular rate and rhythm. No murmur appreciated. Normal peripheral pulses. EXTREMITIES: Normal range of motion. No edema. SKIN: Warm, dry, no rash. Capillary refill normal. Normal skin turgor. NEURO: No focal deficits. Alert and oriented x3. Gait steady. PSYCH: Normal affect. No signs of depression or anxiety. Course Course Emergency Course: out of influenza test Level of Care: Express Care Visit Vital Signs Vital signs: Vital Signs Temperature 98.5 F 02/06/22 10:41 Pulse Rate 89 02/06/22 10:41 Respirat
== END 2022-02-06 11:34 | disposition home or self-care (01) ==
PROVIDERS: Emergency Provider Nurse Practitioner; PCP Nurse Practitioner Adult Health
DX: J06.9 Acute upper respiratory infection, unspecified (principal)
CPT/HCPCS: 87081; 87880; 99213; G0463

== ENCOUNTER 2022-02-15 17:08 | Outpatient (CLI) | payer OTHER, SELFPAY ==
[2022-02-15 18:03] LABS: Beta HCG Quantitative < 2.39 mIU/ML
== END 2022-02-15 17:09 | disposition home or self-care (01) ==
LOC: ANHLAB 17:11
PROVIDERS: PCP Nurse Practitioner Adult Health
DX: O02.81 Inappropriate change in quantitative human chorionic gonadotropin (hCG) in early pregnancy (principal); Z3A.00 Weeks of gestation of pregnancy not specified
CPT/HCPCS: 36415; 84702

== ENCOUNTER 2022-05-08 10:59 | Emergency (ER) | payer OTHER, SELFPAY ==
[2022-05-08 11:13] VITALS: BP 141/76; PULSE 87; RESP 16; TEMP 36.8; O2SAT 100
--- NOTE | 2022-05-08 12:05 | PC.NURSE ---
PT LEFT D/T WAIT TIME
== END 2022-05-08 12:06 | disposition left against medical advice (07) ==
DX: R11.2 Nausea with vomiting, unspecified (principal)
CPT/HCPCS: 99199